=== PATIENT | female | born 1990 | race Two or more races ===

== ENCOUNTER 2019-12-28 17:20 | Emergency (ER) | payer SELFPAY ==
[~2019-12-28] VITALS: Ht 157.5 cm; Wt 68.0 kg
[2019-12-28 18:42] VITALS: BP 126/74
[2019-12-28] MEDS ORDERED: ACETAMINOPHEN 325 MG TAB PO ONE (18:45)
== END 2019-12-28 20:00 | disposition home or self-care (01) ==
LOC: ER 17:20
DX: J45.998 Other asthma (principal)
CPT/HCPCS: 36415; 71045; 87426

== ENCOUNTER 2024-03-18 15:20 | Emergency (ER) | payer BC, MEDICAID ==
[~2024-03-18] VITALS: Ht 157.5 cm; Wt 72.7 kg
[2024-03-18 16:12] VITALS: BP 132/96
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
[2024-03-18] MEDS: ACETAMINOPHEN 325 MG TAB PO ONE (16:38)
[2024-03-18 16:42] VITALS: TEMP 98.6
[2024-03-18] MEDS ORDERED: IBUP-1454 PO (16:57)
[2024-03-18] MEDS ORDERED: BACL10TA PO (16:57)
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
[2024-03-18 17:13] VITALS: PULSE 114; RESP 20; O2SAT 96
== END 2024-03-18 17:12 | disposition home or self-care (01) ==
LOC: EDBD 15:20 → ER 15:20
DX: S70.12XA Contusion of left thigh, initial encounter (principal); S60.222A Contusion of left hand, initial encounter; V43.62XA Car passenger injured in collision with other type car in traffic accident, initial encounter; Y93.89 Activity, other specified; Y92.410 Unspecified street and highway as the place of occurrence of the external cause; Y99.8 Other external cause status